=== PATIENT | female | born 1965 | race Caucasian/White ===

== ENCOUNTER → 2017-06-22 | Outpatient (CLI) | payer OTHER ==
[~2017-06-22] MED LIST: FLUO10CA29 PO; GABA-488 PO; GLIM2TAB PO; LIRA0.6P SQ; LISI1TAB6 PO; METF1000 PO; PANT40TA2 PO; PIOG30TA38 PO; SIMV40TA4 PO; SITA1TBM7 PO; TRAM-42 PO
--- NOTE | 2017-06-22 17:31 | Diagnostic Imaging Report ---
INDICATION: Lump in right side of neck. EXAM: Ultrasound of the right side of the neck performed in the area of clinical question. FINDINGS: In the subcutaneous tissues in the right side of the neck posteriorly, there is a 1.4 x 1.5 x 0.8 cm structure with central fatty hilus, compatible lymph node. IMPRESSION: Mildly enlarged lymph node in the posterior subcutaneous fat in the right side of the neck, suggest clinical followup with followup sonography, if warranted. Dictated by: Dictated on workstation # [id number]
== END ==
LOC: RAD 16:18
PROVIDERS: ATTEND Nurse Practitioner Family
DX: R59.0 Localized enlarged lymph nodes (principal)
CPT/HCPCS: 76536

== ENCOUNTER → 2017-07-05 | Outpatient (CLI) | payer OTHER ==
--- NOTE | 2017-07-05 11:33 | Diagnostic Imaging Report ---
INDICATION: Right-sided neck pain for six weeks. TIME OF EXAM: 11:36 a.m. FINDINGS: Curvature and alignment of the cervical spine is normal. There are postop changes of ACDF with anterior plate and screws transfixing the C5-C6 level. The hardware appears intact without evidence of fracture or loosening. The prevertebral tissues are unremarkable. The odontoid is intact. Disc spaces are fairly well maintained. IMPRESSION: Postop changes of C5-C6 ACDF. No acute abnormality is detected. Dictated by: Dictated on workstation # [id number]
== END ==
LOC: RAD 11:04
PROVIDERS: ATTEND Family Medicine
DX: M54.2 Cervicalgia (principal); Z98.890 Other specified postprocedural states
CPT/HCPCS: 72040

== ENCOUNTER → 2017-07-30 | Outpatient (CLI) | payer OTHER ==
[~2017-07-30] VITALS: Ht 167.6 cm; Wt 107.0 kg
[~2017-07-30] MED LIST changes: +LIDOCAINE 1% INJ 20 ML (XYLOCAINE) VIAL INJ ONE; +LIDOCAINE 1% INJ 50 ML (XYLOCAINE) VIAL ONE
[2017-07-30 13:48] VITALS: BP 134/80
--- NOTE | 2017-07-30 18:12 | Diagnostic Imaging Report ---
INDICATION: Enlarged right posterior neck lymph node. Patient presents for biopsy. COMPARISON: Correlation is made with prior study from 06/22/2017. FINDINGS: Sonographic interrogation of the right posterior neck was performed. There is a lymph node at this location just below the skin surface measuring 14 mm x 6 mm x 15 mm. This is stable when compared with prior exam and at the upper limits of normal in size. There is an echogenic center consistent with fat. Overlying cortex is thin at approximately 1 mm. No definite concerning features are identified. After discussion with the patient that the lymph node is stable and not enlarged and no concerning features are visualized, it was decided to not undergo tissue sampling at this time. Patient was agreeable. Recommendation was made to undergo a followup right posterior neck ultrasound in approximately 3 months to confirm stability. IMPRESSION: Stable right neck lymph node, described above. Biopsy was canceled at this time. Patient should repeat ultrasound in 3 months to confirm stability. Dictated by: Dictated on workstation # [id number]
== END ==
LOC: RAD 13:33
PROVIDERS: ATTEND Family Medicine
DX: R59.0 Localized enlarged lymph nodes (principal)
CPT/HCPCS: 76536

== ENCOUNTER → 2017-09-10 | Outpatient (CLI) | payer OTHER ==
[~2017-09-10] MED LIST changes: +GADOBUTROL 15 MMOL/15 ML (GADAVIST) VIAL IV ONE; -LIDOCAINE 1% INJ 20 ML (XYLOCAINE) VIAL INJ ONE; -LIDOCAINE 1% INJ 50 ML (XYLOCAINE) VIAL ONE
[2017-09-10 11:24] LABS: BUN/CREATININE RATIO 13; CREATININE SERUM 0.78 MG/DL (0.60-1.30); GFR ESTIMATED > 60
--- NOTE | 2017-09-10 12:52 | Diagnostic Imaging Report ---
PROCEDURE: MR imaging cervical spine with and without contrast. TECHNIQUE: Multiplanar and multisequence MRI of the cervical spine was performed with and without contrast. INDICATION: Right neck pain and paresthesia. FINDINGS: There is straightening of normal cervical lordosis. Discectomy and anterior cervical spinal fusion is seen at the C5-C6 level. There is slight annular bulging of the adjacent C4-C5 and C6-C7 disc. No significant spinal stenosis is identified. Cervical spinal cord signal intensities are unremarkable. There is no abnormal contrast enhancement. IMPRESSION: Mild degenerative disc bulging at the C4-C5 and C6-C7 levels adjacent to the fused C5-C6 vertebrae. There is no evidence of spinal or significant neural foraminal stenosis. There is no evidence of complication or spinal cord injury. Dictated by: Dictated on workstation # [id number]
--- NOTE | 2017-09-10 16:30 | Diagnostic Imaging Report ---
PROCEDURE: MR angiography of the brain without the use of contrast. TECHNIQUE: 3D evse-ov-aeukxu non contrast enhanced MR angiography of the head was performed. A source data was reformatted into rotating MIP projections. INDICATION: Headache. COMPARISON: None. FINDINGS: Both internal carotid arteries are normal in course and caliber. The anterior and middle cerebral arteries demonstrate normal flow related enhancement and are symmetric. There is no significant stenosis or large aneurysm. The anterior communicating artery is not well seen. However, no large aneurysm is seen. In the posterior circulation, the vertebral arteries appear to be codominant. The vertebral and basilar arteries are unremarkable. The posterior communicating arteries are faintly seen, bilaterally. Both posterior cerebral arteries are unremarkable. There is no evidence of aneurysm, significant stenosis or vascular malformation seen. IMPRESSION: Negative MRA of the [place]. No evidence of significant stenosis or aneurysm. Dictated by: Dictated on workstation # [id number]
== END ==
LOC: RAD 10:49
PROVIDERS: ATTEND Nurse Practitioner Family
DX: M50.221 Other cervical disc displacement at C4-C5 level (principal); R51 Headache
CPT/HCPCS: 36415; 70544; 72156; 82565; 84520

== ENCOUNTER → 2018-03-21 | Outpatient (CLI) | payer OTHER ==
[~2018-03-21] MED LIST changes: -GADOBUTROL 15 MMOL/15 ML (GADAVIST) VIAL IV ONE; +METF-399 PO; -METF1000 PO
--- NOTE | 2018-03-21 16:46 | Diagnostic Imaging Report ---
CLINICAL INDICATION: Patient complains of right wrist pain on lateral side that radiates to mid forearm. No known injury. EXAM: X-ray of the right wrist, three views. COMPARISON: None. FINDINGS: There is roughly 2 mm of positive ulnar variance and slight widening of the distal radioulnar joint at 4 mm. Otherwise, there is no gross acute fracture or dislocation. There is a chronic calcification seen distal to the ulnar styloid process region, which may be from remote traumatic changes. The remainder of this exam shows no other significant abnormality. IMPRESSION: 1: There is positive ulnar variance and slight widening of the distal radioulnar joint. Correlation for recent trauma or ligamentous injury is suggested. 2: Otherwise, there is no concern for acute fracture or dislocation. 3: Likely chronic calcifications from remote traumatic process seen distal to the ulnar styloid process. Dictated by: Dictated on workstation # [id number]
== END ==
LOC: RAD 16:06
PROVIDERS: ATTEND Nurse Practitioner Family
DX: M25.531 Pain in right wrist (principal)
CPT/HCPCS: 73110

== ENCOUNTER → 2019-06-26 | Outpatient (CLI) | payer OTHER ==
[~2019-06-26] MED LIST changes: -GLIM2TAB PO; +GLIM2TAB2 PO; +LISI1TAB29 PO; -LISI1TAB6 PO; +SIMV40TA25 PO; -SIMV40TA4 PO
--- NOTE | 2019-06-26 14:40 | Diagnostic Imaging Report ---
INDICATION: Abdominal pain. FINDINGS: An AP view of the pelvis shows no fracture, dislocation, or other acute abnormalities. IMPRESSION: Negative pelvis. Dictated by: Dictated on workstation # [id number]
--- NOTE | 2019-06-26 14:46 | Diagnostic Imaging Report ---
INDICATION: Abdominal pain and diarrhea. TECHNIQUE: Supine and upright abdominal images were obtained. FINDINGS: The lung bases are clear. The gallbladder appears to be surgically absent. The bowel gas pattern is normal. There are no pathologic masses or calcifications. IMPRESSION: No acute abnormalities in the abdomen. Dictated by: Dictated on workstation # [id number]
== END ==
LOC: RAD 14:07
PROVIDERS: ATTEND Nurse Practitioner Family
DX: R19.7 Diarrhea, unspecified (principal); R10.9 Unspecified abdominal pain
CPT/HCPCS: 72170; 74019

== ENCOUNTER → 2020-02-07 | Outpatient (CLI) | payer OTHER ==
[~2020-02-07] MED LIST changes: -GLIM2TAB2 PO; +GLIM2TAB4 PO
--- NOTE | 2020-02-07 14:26 | Diagnostic Imaging Report ---
INDICATION: Left knee pain posterior to the patella. EXAMINATION: Left knee, 3 views. FINDINGS: Nonweightbearing images show good preservation of the joint spaces. The articulating surfaces are smooth. The joint spaces are well-maintained. The patellofemoral joint appears normal. No fractures. No chondrocalcinosis or loose bodies. No hypertrophic bony changes. IMPRESSION: Normal left knee. Dictated by: Dictated on workstation # [id number]
--- NOTE | 2020-02-07 15:14 | Diagnostic Imaging Report ---
INDICATION: Left leg pain. Left leg venous Doppler study was performed in the routine fashion with color flow Doppler and waveform analysis. FINDINGS: The left common femoral vein, superficial femoral vein, popliteal vein and visualized portion of the posterior tibial vein show normal compressibility and venous flow patterns. There is normal augmentation. IMPRESSION: No evidence of deep vein thrombosis of the major veins of the left leg. Dictated by: Dictated on workstation # [id number]
== END ==
LOC: RAD 13:44
PROVIDERS: ATTEND Nurse Practitioner Family
DX: M25.562 Pain in left knee (principal); M79.605 Pain in left leg
CPT/HCPCS: 73562

== ENCOUNTER 2021-03-21 05:43 | Outpatient (RCR) | payer OTHER ==
[~2021-03-21] VITALS: Ht 167.6 cm; Wt 85.5 kg
[~2021-03-21 05:43] MED LIST changes: -LISI1TAB29 PO; +LISI1TAB44 PO
[2021-04-22] MEDS ORDERED: ESTR42.511 VG (14:48)
[2021-04-22] MEDS ORDERED: GABA300S2 PO (14:48)
[2021-04-22] MEDS ORDERED: LISI2.5T13 PO (14:50)
[2021-04-22] MEDS ORDERED: INSU3INS2 SQ (14:50)
[2021-04-29] MEDS ORDERED: FAMO-119 PO ×2 (10:29→11:07)
== END 2021-06-06 | disposition home or self-care (01) ==
LOC: PREOP 05:43
PROVIDERS: ATTEND Surgery
DX: Z01.818 Encounter for other preprocedural examination (principal)

== ENCOUNTER → 2021-04-10 | Outpatient (CLI) | payer OTHER ==
[~2021-04-10] MED LIST changes: +LISI1TAB29 PO; -LISI1TAB44 PO
== END ==
LOC: ORTHO 10:26
PROVIDERS: ATTEND Orthopaedic Surgery
DX: M65.321 Trigger finger, right index finger (principal)
CPT/HCPCS: 20550

== ENCOUNTER 2021-04-25 05:33 | Outpatient (RCR) | payer OTHER ==
[~2021-04-25] VITALS: Ht 167.6 cm; Wt 85.5 kg
[~2021-04-25 05:33] MED LIST changes: +ESTR42.511 VG; +GABA300S2 PO; +INSU3INS2 SQ; +LISI2.5T13 PO
[2021-04-29] MEDS ORDERED: FAMO-119 PO ×2 (10:29→11:07)
== END 2021-04-25 13:47 | disposition home or self-care (01) ==
LOC: PREOP 05:33
PROVIDERS: ATTEND Surgery
DX: Z01.812 Encounter for preprocedural laboratory examination (principal); K21.9 Gastro-esophageal reflux disease without esophagitis; Z20.822 Contact with and (suspected) exposure to COVID-19; Z86.010 Personal history of colon polyps
CPT/HCPCS: 87635

== ENCOUNTER 2021-04-29 08:18 | Day surgery (SDC) | payer OTHER ==
[2021-04-29] VITALS (7 sets, daily range): BP systolic 125–144; BP diastolic 71–91
[~2021-04-29] VITALS: Ht 167.6 cm; Wt 85.5 kg
[~2021-04-29 08:18] MED LIST changes: -LISI1TAB29 PO; +LISI1TAB44 PO
[2021-04-29] MEDS ORDERED: LACTATED RINGERS 1,000 ML IV STA (08:34)
[2021-04-29] MEDS ORDERED: LACTATED RINGERS 1,000 ML IV ONE (08:36)
[2021-04-29] MEDS ORDERED: HURRICAINE EXT TUBE (BENZOCAINE) XX PRN (08:45)
[2021-04-29] MEDS ORDERED: MIDAZOLAM 2 MG/2 ML (VERSED) VIAL ONE (09:01)
[2021-04-29] MEDS ORDERED: PROPOFOL INJECTION 50 ML IV ONE (09:01)
[2021-04-29] MEDS ORDERED: proPOfol 200 MG/20 ML (DIPRIVAN) VIAL IV ONE (10:14)
--- NOTE | 2021-04-29 10:27 | Progress Note-Post Operative ---
Post-Operative Progess Note Surgeon (s)/Grease Press Helper (s) Surgeon PEPITO GONZALES DO Grease Press Helper: na Pre-Operative Diagnosis 1.GERD 2. Personal history of polyps Post-Operative Diagnosis slight gastritis, rectal polyps x 2 Procedure & Operative Findings Date of Procedure 04/29/21 Procedure Performed/Findings egd c biopsies, colonoscopy c hot bx polypectomy x 2. Anesthesia Type per medicine assistant Estimated Blood Loss Estimated blood loss (mL): none Specimens/Packing Specimens Removed antrum, ge, rectal polyps PEPITO GONZALES DO Apr 29, 2021 10:27
--- NOTE | 2021-04-29 10:28 | Discharge Inst-Simple/Standard ---
Discharge Inst-Standard Patient Instructions/Follow Up Plan of Care/Instructions/FU: 2 weeks ivet Activity as Tolerated: Yes Discharge Diet: Regular Diet PEPITO GONZALES DO Apr 29, 2021 10:28
[2021-04-29] MEDS ORDERED: FAMO-119 PO ×2 (10:29→11:07)
--- NOTE | 2021-04-29 13:55 | Anesthesia-General Post-Op ---
MAC Patient Condition Mental Status/LOC: Same as Preop Cardiovascular: Satisfactory Nausea/Vomiting: Absent Respiratory: Satisfactory Pain: Controlled Complications: Absent Post Op Complications Complications None Follow Up Care/Instructions Patient Instructions None needed. Anesthesiology Discharge Order Discharge Order Patient is doing well, no complaints, stable vital signs, no apparent adverse anesthesia problems. No complications reported per nursing. CLARE THOMPSON CRNA Apr 29, 2021 13:55
--- NOTE | 2021-04-29 16:46 | OPERATIVE REPORT ---
DATE OF SERVICE: PREOPERATIVE DIAGNOSES: Gastroesophageal reflux disease and history of polyps. POSTOPERATIVE DIAGNOSES: Slight gastritis, rectal polyp x2. PROCEDURE: EGD with biopsies, colonoscopy with hot biopsy polypectomy x2. SURGEON: Pepito Carrasco DO ANESTHESIA: Per HOLISTIC SPECIALIST. ESTIMATED BLOOD LOSS: None. COMPLICATIONS: None. SPECIMENS: Antrum, GE junction and rectal polyps. DESCRIPTION OF PROCEDURE: The patient was taken to the endoscopy suite, placed in left lateral recumbent position. Timeout was performed. Scope was inserted in mouth, down the esophagus, stomach and into the duodenum without difficulty. There were no polyps, masses or ulcerations. Scope was slowly retracted back into the stomach where it was further insufflated. Slight erythematous changes. Biopsy of the antrum was obtained. No masses or ulcerations. Scope was retroflexed noting no other pathology. Scope was returned to its normal position, slowly withdrawn to distal esophagus. No polyps, masses or ulcerations. Biopsy of the GE junction was obtained. Scope was slowly retracted back until completely removed. Digital rectal exam was performed. No palpable polyps, masses or ulcerations. Scope was inserted in the rectum, advanced all the way to cecum with minimal difficulty. Prep was adequate with irrigation and suction. Scope was slowly retracted back. No polyps, masses or ulcerations within the cecum, ascending, transverse, descending and sigmoid colon. Once in the rectum, two small polyps were present, which hot biopsy polypectomies were performed. Scope was retroflexed noting no other pathology. Scope was returned to its normal position, slowly withdrawn until completely removed. The patient tolerated procedure well without any complications. She was taken to recovery room in stable condition. RECOMMENDATIONS: 1. The patient will start Pepcid 20 mg daily. We will see how her symptoms are doing in the office in a couple of weeks. The patient will have repeat colonoscopy in 5 years. Any issues before that will be seen at that time. We will follow up on pathology in the office. Job ID: [id number] DocumentID: [id number] Dictated Date: 04/29/2021 10:31:52 Pin Chaser Date: 04/29/2021 16:45:54 Dictated By: PEPITO CARRASCO DO
== END 2021-04-29 12:13 ==
LOC: ENDO 08:18
PROVIDERS: ATTEND Surgery
DX: Z12.11 Encounter for screening for malignant neoplasm of colon (principal); K62.1 Rectal polyp; K21.00 Gastro-esophageal reflux disease with esophagitis, without bleeding; D72.19 Other eosinophilia; I10 Essential (primary) hypertension; E11.9 Type 2 diabetes mellitus without complications; K44.9 Diaphragmatic hernia without obstruction or gangrene; Z79.899 Other long term (current) drug therapy; Z79.84 Long term (current) use of oral hypoglycemic drugs; Z90.49 Acquired absence of other specified parts of digestive tract
CPT/HCPCS: 82947

== ENCOUNTER → 2022-01-20 | Outpatient (CLI) | payer OTHER ==
[~2022-01-20] MED LIST changes: +FAMO-119 PO; +FAMO-275 PO; +GABA300C PO; +TRAM50TA3 PO
== END ==
LOC: ORTHO 17:14
PROVIDERS: ATTEND Orthopaedic Surgery
DX: M65.321 Trigger finger, right index finger (principal); E11.9 Type 2 diabetes mellitus without complications; I10 Essential (primary) hypertension
CPT/HCPCS: 99213

== ENCOUNTER 2022-01-21 09:30 | Outpatient (CLI) | payer OTHER ==
[~2022-01-21] VITALS: Ht 167.6 cm; Wt 95.2 kg
[~2022-01-21 09:30] MED LIST changes: -FAMO-275 PO; -GABA300C PO; -TRAM50TA3 PO
[2022-01-21] MEDS ORDERED: GABA300C PO ×2 (10:55)
[2022-01-21] MEDS ORDERED: FAMO-275 PO ×2 (10:55)
[2022-01-21] MEDS ORDERED: LISI1TAB44 PO ×2 (10:55)
== END 2022-01-21 11:03 | disposition home or self-care (01) ==
LOC: PREOP 09:30
PROVIDERS: ATTEND Orthopaedic Surgery
DX: Z01.818 Encounter for other preprocedural examination (principal); M65.321 Trigger finger, right index finger

== ENCOUNTER 2022-01-23 09:48 | Day surgery (SDC) | payer OTHER ==
[~2022-01-23] VITALS: Ht 167.6 cm; Wt 95.2 kg
[2022-01-23] VITALS (9 sets, daily range): BP systolic 120–150; BP diastolic 83–90
[~2022-01-23 09:48] MED LIST changes: +FAMO-275 PO; +GABA300C PO
[2022-01-23] MEDS ORDERED: MIDAZOLAM 2 MG/2 ML (VERSED) VIAL ONE (10:41)
[2022-01-23] MEDS ORDERED: ONDANSETRON 4 MG/2 ML (SDV) Z0FRAN ONE (10:41)
[2022-01-23] MEDS ORDERED: PROPOFOL INJECTION 50 ML IV ONE ×2 (10:41→11:38)
[2022-01-23] MEDS ORDERED: fentaNYL INJ 100 MCG/2 ML AMP ONE (10:41)
[2022-01-23] MEDS ORDERED: ceFAZolin 2 GM IV Premixed 50 ML IV ONE (10:45)
[2022-01-23] MEDS ORDERED: LACTATED RINGERS 1,000 ML IV PRN (10:45)
[2022-01-23] MEDS ORDERED: BUPIVACAINE 0.25% 30 ML (SENSORCAINE) VIAL ONE (10:51)
[2022-01-23] MEDS ORDERED: LIDOCAINE 1% INJ 20 ML VIAL ONE (10:51)
[2022-01-23] MEDS ORDERED: BACITRACIN OINTMENT 28 GM TUBE ONE (10:51)
--- NOTE | 2022-01-23 11:03 | Progress Note-Pre Operative ---
Pre-Operative Progress Note Date of Available H&P: Jan 20, 2022 Date H&P Reviewed: Jan 23, 2022 Time H&P Reviewed: 11:00 History & Physical: H&P Reviewed, Patient Examed, No changes noted Pre-Operative Diagnosis: Right Index Trigger Finger CLARE PHOENIX MD Jan 23, 2022 11:03
--- NOTE | 2022-01-23 11:55 | Operative Report - Ortho ---
Operative Report Surgeon (s)/Service Administrator (s) Surgeon CLARE PHOENIX MD Service Administrator n/a Pre-Operative Diagnosis Right Index Trigger Finger Post-Operative Diagnosis same Operative Report Date of Procedure: Jan 23, 2022 Name of Procedure Performed: Release of Right Index Trigger Finger Description & Findings After obtaining informed consent and marking the patient in the preop holding area, patient was administered IV antibiotics. Taken to the operating room and sedation was administered. Surgical timeout was taken. Local anesthetic was administered. Right upper extremity was prepped and draped in the usual sterile fashion. Incision was made over the A1 oscar of the right index finger. Blunt dissection was carried down and the proximal aspect of the oscar was defined and the oscar was released proximally to distally. Finger was put through motion without evidence of triggering. Wound was lavaged with normal saline and closed with 4-0 nylon. Site was dressed with xeroform, 4x4's, zehra, cast padding, and neil wrap. Patient tolerated the procedure well and was stable to the recovery room. Anesthesia Type Local and MAC Estimated Blood Loss minimal Specimen(s) collected/removed None CLARE PHOENIX MD Jan 23, 2022 11:55
[2022-01-23] MEDS ORDERED: TRAM50TA3 PO ×2 (11:57)
--- NOTE | 2022-01-23 11:57 | Anesthesia-General Post-Op ---
MAC Patient Condition Mental Status/LOC: Same as Preop Cardiovascular: Satisfactory Nausea/Vomiting: Absent Respiratory: Satisfactory Pain: Controlled Complications: Absent Post Op Complications Complications None Follow Up Care/Instructions Patient Instructions None needed. Anesthesiology Discharge Order Discharge Order Patient is doing well, no complaints, stable vital signs, no apparent adverse anesthesia problems. No complications reported per nursing. ALEXANDRIA PHILLIPS CRNA Jan 23, 2022 11:57
[2022-01-23] MEDS ORDERED: ONDANSETRON 4 MG/2 ML (SDV) Z0FRAN IVP PRN (12:00)
[2022-01-23] MEDS ORDERED: PROMETHAZINE INJ 25 MG/ML (PHENERGAN) AMP IVP ONE (12:00)
[2022-01-23] MEDS ORDERED: HYDROmorphone 2 MG/ML VIAL (DILAUDID) IV ONE (12:00)
[2022-01-23] MEDS ORDERED: morphine INJ 10 MG/ML 1ML (SYR OR VIAL) IVP ONE (12:00)
[2022-01-23] MEDS ORDERED: fentaNYL INJ 100 MCG/2 ML AMP IVP ONE (12:00)
[2022-01-23] MEDS ORDERED: MEPERIDINE (DEMEROL) INJ 50 MG/ML IVP ONE (12:00)
== END 2022-01-23 13:20 | disposition home or self-care (01) ==
LOC: SDC 09:48
PROVIDERS: ATTEND Orthopaedic Surgery
DX: M65.321 Trigger finger, right index finger (principal); E66.9 Obesity, unspecified; Z68.34 Body mass index [BMI] 34.0-34.9, adult
CPT/HCPCS: 82947; 87081

== ENCOUNTER → 2022-02-05 | Outpatient (CLI) | payer OTHER ==
[~2022-02-05] MED LIST changes: +TRAM50TA3 PO
== END ==
LOC: ORTHO 08:21
PROVIDERS: ATTEND Orthopaedic Surgery
DX: Z47.89 Encounter for other orthopedic aftercare (principal); E11.9 Type 2 diabetes mellitus without complications; I10 Essential (primary) hypertension; Z98.890 Other specified postprocedural states

== ENCOUNTER → 2022-03-24 | Outpatient (CLI) | payer OTHER | LOC: ORTHO 08:45 | PROVIDERS: ATTEND Orthopaedic Surgery | DX: Z47.89 Encounter for other orthopedic aftercare (principal) ==

== ENCOUNTER → 2022-04-21 | Outpatient (CLI) | payer OTHER | LOC: ORTHO 08:54 | PROVIDERS: ATTEND Orthopaedic Surgery | DX: Z47.89 Encounter for other orthopedic aftercare (principal) ==

== ENCOUNTER → 2022-09-01 | Outpatient (CLI) | payer OTHER | LOC: ORTHO 10:46 | PROVIDERS: ATTEND Orthopaedic Surgery | DX: M65.331 Trigger finger, right middle finger (principal); I10 Essential (primary) hypertension; E11.9 Type 2 diabetes mellitus without complications | CPT/HCPCS: 20551 ==

== ENCOUNTER 2022-12-06 20:21 | Emergency (ER) | payer OTHER ==
[~2022-12-06] VITALS: Ht 167.7 cm; Wt 83.9 kg
[~2022-12-06 20:21] MED LIST changes: -GABA300S2 PO; +GABA300S3 PO
[2022-12-06 20:30] VITALS: BP 142/96
--- NOTE | 2022-12-06 20:46 | ED General ---
General Stated Complaint: CHEST PAIN WHEN TRYING TO EAT OR DRINK Source of Information: Patient Exam Limitations: No Limitations (BLAYNE SANDOVAL) History of Present Illness Date Seen by Provider: Dec 06, 2022 Time Seen by Provider: 20:44 Initial Comments Patient is a 57-year-old female presents ED with substernal chest pain. Chest pain started last Wednesday. Chest pain occurs with swallowing. She was seen at Dr. SLOAN's office by her nurse practitioner was discharged with Carafate, Protonix and Gaviscon which she has been using. This pain has progressively got worse. This pain only occurs with eating and located center chest. Pain last for 3 to 4 minutes. Decreased appetite. She has only been able to eat 3-4 bites of sherbet today. Does not matter what she eats the pain intensifies. She has a history of 2 bowel obstructions, total hysterectomy, cholecystectomy. She has no abdominal pain with this. Pain does radiate to the back every time she eats. She denies history of coronary artery disease, COPD or asthma. She denies any recent travels or surgeries. No known blood disorders. Denies history of esophagitis, gastritis, peptic ulcer disease. Denies history of similar type pain. Patient denies abdominal pain, leg pain, leg swelling, fever, chills, body aches (BLAYNE SANDOVAL) Allergies and Home Medications Allergies Coded Allergies: codeine (Unverified Adverse Reaction, Intermediate, VOMITING, 09/13/15) PER PT Patient Home Medication List Home Medication List Reviewed: Yes (BLAYNE SANDOVAL) Estradiol (Estradiol) 42.5 Gm Cream.appl, 0.1 MG VG UD, (Reported) Entered as Reported by: BELIA ROWLEY on 04/22/21 1448 Famotidine (Zantac-360 (Famotidine)) 20 Mg Tablet, 20 MG PO DAILY, (Reported) Entered as Reported by: SARA FAIRCHILD on 01/21/22 1055 Fluoxetine HCl (Prozac) 10 Mg Capsule, 10 MG PO DAILY, (Reported) Entered as Reported by: JAMES SMITH on 09/04/15 1105 Gabapentin (Neurontin) 300 Mg Capsule, 300 MG PO HS, (Reported) Entered as Reported by: SARA FAIRCHILD on 01/21/22 1055 Insulin Glargine/Lixisenatide (Soliqua 100 Unit-33 Mcg/ml Pen) 100 Unit-33 Mcg/Ml (3 Ml) Insuln.pen, 35 UNIT SQ DAILY, (Reported) Entered as Reported by: BELIA ROWLEY on 04/22/21 1450 Lisinopril/Hydrochlorothiazide (Lisinopril-Hctz 10-12.5 mg Tab) 10 Mg-12.5 Mg Tablet, 1 EACH PO DAILY, (Reported) Entered as Reported by: SARA FAIRCHILD on 01/21/22 1055 Metformin HCl (Metformin HCl) 1,000 Mg Tablet, 1,000 MG PO BID, (Reported) Entered as Reported by: JAMES SMITH on 09/04/15 1105 Simvastatin (Simvastatin) 40 Mg Tablet, 40 MG PO DAILY, (Reported) Entered as Reported by: JAMES SMITH on 09/04/15 1105 Tramadol HCl (Tramadol HCl) 50 Mg Tablet, 50 MG PO Q6H Prescribed by: CLARE PHOENIX MD on 01/23/22 1158 Review of Systems Review of Systems Constitutional: No chills, No diaphoresis, No malaise EENTM: No ear pain, No blurred vision, No double vision Respiratory: No cough, No dyspnea on exertion Cardiovascular: chest pain Gastrointestinal: No abdominal pain, No constipation, No diarrhea, No nausea, No vomiting Genitourinary: No decreased output, No discharge Musculoskeletal: No back pain, No joint pain (BLAYNE SANDOVAL) All Other Systems Reviewed Negative Unless Noted: Yes (BLAYNE SANDOVAL) Past Lhawuuq-Dkwdpv-Vwyesa Hx Immunizations Up To Date First/Initial COVID19 Vaccinat: 06/27 Second COVID19 Vaccination [place]: 08/25 Third COVID19 Vaccination Date: 04 27 (BLAYNE SANDOVAL) Seasonal Allergies Seasonal Allergies: No (BLAYNE SANDOVAL) Past Medical History Surgeries: Yes (NECK FUSION, TUBAL X2, FOOT SURGERY X2, bowel obstruction x2) Gallbladder, Hysterectomy Respiratory: No Currently Using CPAP: No Currently Using BIPAP: No Cardiac: Yes High Cholesterol, Hypertension Neurological: No 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 Sexually Transmitted Disease: No HIV/AIDS: No Genitourinary: No Gastrointestinal: Yes (TAKES TUMS AT TIMES) Gastroesophageal Reflux, Polyps, Hiatal Hernia Musculoskeletal: Yes (HX NECK FUSION) Endocrine: Yes Diabetes, Insulin dep HEENT: No Loss of Vision: Bilateral Hearing Impairment: Denies Cancer: No Psychosocial: No Depression Integumentary: No Blood Disorders: No Adverse Reaction/Blood Tranf: No (BLAYNE SANDOVAL) Physical Exam Vital Signs Vital Signs - First Documented 12/06/22 20:30 Temp 36.9 Pulse 85 Resp 17 B/P (MAP) 142/96 (111) O2 Delivery Room Air (MORGAN MISTRY MD) Vital Signs Capillary Refill : (BLAYNE SANDOVAL) Height, Weight, BMI Height: 5'6.00" Weight: 236lbs. 0.0oz. 107.947121ui; 33.89 BMI Method: General Appearance: No Apparent Distress, WD/WN Eyes: Bilateral Eye Normal Inspection, Bilateral Eye PERRL, Bilateral Eye EOMI HEENT: PERRL/EOMI, TMs Normal, Normal ENT Inspection, Pharynx Normal Neck: Full Range of Motion, Normal Inspection, Non Tender, Supple Respiratory: Chest Non Tender, Lungs Clear, Normal Breath Sounds, No Accessory Muscle Use, No Respiratory Distress Cardiovascular: Regular Rate, Rhythm, No Edema, No Gallop, No JVD, No Murmur Gastrointestinal: Normal Bowel Sounds, No Organomegaly, No Pulsatile Mass, Non Tender Back: Normal Inspection, No CVA Tenderness Extremity: Normal Capillary Refill, Normal Inspection, Normal Range of Motion, Non Tender, No Calf Tenderness Neurologic/Psychiatric: Alert, Oriented x3, No Motor/Sensory Deficits, Normal Mood/Affect, 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 Norm as Tested Skin: Normal Color, Warm/Dry (BLAYNE SANDOVAL) Progress/Results/Core Measures Suspected Sepsis SIRS Temperature: Pulse: Respiratory Rate: Laboratory Tests 12/06/22 20:46: White Blood Count 7.0 Blood Pressure / Mean: Laboratory Tests 12/06/22 20:46: Creatinine 0.70, Platelet Count 281, Total Bilirubin 0.5 (BLAYNE SANDOVAL) Results/Orders Lab Results Laboratory Tests Test 12/06/22 20:46 Range/Units White Blood Count 7.0 4.3-11.0 10^3/uL Red Blood Count 5.14 H 3.80-5.11 10^6/uL Hemoglobin 14.2 11.5-16.0 g/dL Hematocrit 42 35-52 % Mean Corpuscular Volume 83 80-99 fL Mean Corpuscular Hemoglobin 28 25-34 pg Mean Corpuscular Hemoglobin Concent 34 32-36 g/dL Red Cell Distribution Width 12.4 10.0-14.5 % Platelet Count 281 130-400 10^3/uL Mean Platelet Volume 9.3 9.0-12.2 fL Immature Granulocyte % (Auto) 0 % Neutrophils (%) (Auto) 55 42-75 % Lymphocytes (%) (Auto) 35 12-44 % Monocytes (%) (Auto) 9 0-12 % Eosinophils (%) (Auto) 1 0-10 % Basophils (%) (Auto) 0 0-10 % Neutrophils # (Auto) 3.9 1.8-7.8 10^3/uL Lymphocytes # (Auto) 2.5 1.0-4.0 10^3/uL Monocytes # (Auto) 0.6 0.0-1.0 10^3/uL Eosinophils # (Auto) 0.1 0.0-0.3 10^3/uL Basophils # (Auto) 0.0 0.0-0.1 10^3/uL Immature Granulocyte # (Auto) 0.0 0.0-0.1 10^3/uL Sodium Level 137 135-145 MMOL/L Potassium Level 3.6 3.6-5.0 MMOL/L Chloride Level 100 98-107 MMOL/L Carbon Dioxide Level 25 21-32 MMOL/L Anion Gap 12 5-14 MMOL/L Blood Urea Nitrogen 10 7-18 MG/DL Creatinine 0.70 0.60-1.30 MG/DL Estimat Glomerular Filtration Rate 101 BUN/Creatinine Ratio 14 Glucose Level 124 H 70-105 MG/DL Calcium Level 9.2 8.5-10.1 MG/DL Corrected Calcium 9.3 8.5-10.1 MG/DL Total Bilirubin 0.5 0.1-1.0 MG/DL Aspartate Amino Transf (AST/SGOT) 16 5-34 U/L Alanine Aminotransferase (ALT/SGPT) 15 0-55 U/L Alkaline Phosphatase 83 40-136 U/L Troponin I < 0.028 <0.028 NG/ML Total Protein 7.3 6.4-8.2 GM/DL Albumin 3.9 3.2-4.5 GM/DL Lipase 48 8-78 U/L (MORGAN MISTRY MD) Medications Given in ED Current Medications Medications Dose Ordered Sig/Singh Route Start Time Stop Time Status Last Admin Dose Admin Al Hydrox/Mg Hydrox/Simethicone 30 ml ONCE ONCE PO 12/06/22 21:45 12/06/22 21:46 DC 12/06/22 22:06 30 ML Iohexol 100 ml ONCE ONCE IV 12/06/22 21:15 12/06/22 21:16 DC 12/06/22 21:44 75 ML Lidocaine HCl 15 ml ONCE ONCE PO 12/06/22 21:45 12/06/22 21:46 DC 12/06/22 22:06 15 ML Sodium Chloride 100 ml ONCE ONCE IV 12/06/22 21:15 12/06/22 21:16 DC 12/06/22 21:44 80 ML (MORGAN MISTRY MD) Vital Signs/I&O 12/06/22 20:30 Temp 36.9 Pulse 85 Resp 17 B/P (MAP) 142/96 (111) O2 Delivery Room Air (MORGAN MISTRY MD) Vital Signs/I&O Capillary Refill : (BLAYNE SANDOVAL) ECG Comment Sinus rhythm, 86 bpm, QRS duration 90 MS, QTc 419 MS. (BLAYNE SANDOVAL) Departure Communication (PCP) Patient is a 57-year-old female with a history of cholecystectomy, total hysterectomy, 2 bowel obstructions who presents ED with substernal chest pain immediately after she eats. This last for 3 to 4 minutes. Located substernal chest radiates to the back. On exam she has no chest tenderness. She has no epigastric right upper quadrant tenderness. Patient states symptoms started on Wednesday. This has progressively gotten worse. She ate 3-4 bites of sherbet today and states the pain has intensified. Saw her primary care physician last Wednesday and prescribed Gaviscon, Protonix and Carafate. Patient vital signs stable. Due to location of pain CBC, CMP, troponin, EKG CT scan of the chest. Differential diagnosis esophagitis, esophageal dysfunction. CT scan of the chest showed several subcentimeter short axis superior mediastinal lymph nodes measuring up to 9 mm in short axis of unclear exact etiology. There is no wall thickening of the esophagus or stomach. Recommend further evaluation with upper endoscopy. Patient did receive a GI cocktail which did improve this sharp pain. She was able to tolerate p.o. water. Patient was discussed with Dr. Gonzales. Discussed results, imaging, presentation. Recommended no diet, caffeine, soda. Liquid diet until 12 PM and n.p.o. after midnight. Recommend following up in the office at 9 AM. We will work to get patient a upper EGD tomorrow. Patient agrees with this plan of action. N.p.o. after midnight (BLAYNE SANDOVAL) Impression Primary Impression: Esophagitis Disposition: 01 HOME, SELF-CARE Condition: Stable Departure-Patient Inst. Decision time for Depature: 22:22 (BLAYNE SANDOVAL) Referrals: PEPITO GONZALES JACQUELINE S DO (PCP/Family) Primary Care Physician Patient Instructions: Esophagitis Add. Discharge Instructions: Recommend following up with Dr. Gonzales at 9 AM. N.p.o. after midnight. Clear liquids until midnight. Continue with your medication. ATTENDING PHYSICIAN NOTE: I was physically present as attending physician in the emergency department during the care of this patient, but I was not directly involved in the decision making or delivery of care for this patient. (MORGAN MISTRY MD) BLAYNE SANDOVAL Dec 06, 2022 20:46 MORGAN MISTRY MD Dec 07, 2022 03:43
[2022-12-06 21:02] LABS: BASOPHILS % (AUTO) 0 % (0-10); EOSINOPHILS # (AUTO) 0.1 10^3/uL (0.0-0.3); EOSINOPHILS % (AUTO) 1 % (0-10); HEMATOCRIT 42 % (35-52); HEMOGLOBIN 14.2 g/dL (11.5-16.0); LYMPHOCYTES # (AUTO) 2.5 10^3/uL (1.0-4.0); LYMPHOCYTES % (AUTO) 35 % (12-44); MEAN CORPUSCULAR HEMOGLOBIN 28 pg (25-34); MEAN CORPUSCULAR HGB CONC 34 g/dL (32-36); MEAN CORPUSCULAR VOLUME 83 fL (80-99); MEAN PLATELET VOLUME 9.3 fL (9.0-12.2); MONOCYTES # (AUTO) 0.6 10^3/uL (0.0-1.0); MONOCYTES % (AUTO) 9 % (0-12); NEUTROPHILS # (AUTO) 3.9 10^3/uL (1.8-7.8); NEUTROPHILS % (AUTO) 55 % (42-75); PLATELET COUNT 281 10^3/uL (130-400)
[2022-12-06] MEDS ORDERED: IOHEXOL 350 MG/ML 100 ML (OMNIPAQUE 350) VIAL IV ONE (21:15)
[2022-12-06] MEDS ORDERED: NS 100 ML (IVPB) BAG IV ONE (21:15)
[2022-12-06] MEDS ORDERED: HOLD METFORMIN - RECEIVED CONTRAST 20 ML VIAL IV SCH (21:15)
[2022-12-06 21:31] LABS: ALBUMIN 3.9 GM/DL (3.2-4.5)
[2022-12-06 21:32] LABS: CHLORIDE 100 MMOL/L (98-107); POTASSIUM 3.6 MMOL/L (3.6-5.0); SODIUM 137 MMOL/L (135-145)
[2022-12-06 21:33] LABS: CALCIUM 9.2 MG/DL (8.5-10.1)
[2022-12-06 21:34] LABS: GLUCOSE 124 MG/DL (70-105); TOTAL PROTEIN 7.3 GM/DL (6.4-8.2)
[2022-12-06 21:35] LABS: CARBON DIOXIDE 25 MMOL/L (21-32)
[2022-12-06 21:36] LABS: BILIRUBIN,TOTAL 0.5 MG/DL (0.1-1.0)
[2022-12-06 21:37] LABS: ALKALINE PHOSPHATASE 83 U/L (40-136)
[2022-12-06 21:38] LABS: GFR ESTIMATED 101
[2022-12-06 21:39] LABS: BUN/CREATININE RATIO 14
[2022-12-06 21:40] LABS: ALANINE AMINOTRANSFERASE 15 U/L (0-55)
[2022-12-06 21:41] LABS: LIPASE 48 U/L (8-78)
[2022-12-06] MEDS ORDERED: ANTACID SUSP 30 ML UDC (MYLANTA) PO ONE (21:45)
[2022-12-06] MEDS ORDERED: LIDOCAINE 2% VISCOUS 15 ML UDC PO ONE (21:45)
--- NOTE | 2022-12-06 21:58 | Diagnostic Imaging Report ---
Procedure: CT chest with contrast only. Technique: Multiple contiguous axial images were obtained through the chest after administration of intravenous contrast. Auto Exposure Controls were utilized during the CT exam to meet ALARA standards for radiation dose reduction. Date: December 06, 2022. Indication: 57-year-old female, sternal pain when swallowing. Comparison: None. Findings: There is no identified pulmonary nodule or lung mass. There is no pneumothorax. There is no pleural effusion. There is no focal airspace consolidation. There is very mild dependent atelectasis in the right and left lower lobes. The central airways are patent. The heart is not enlarged. There is no identified pericardial effusion. There is no CT apparent wall thickening of the esophagus. The trachea is normal in caliber. There is no abnormally enlarged mediastinal, hilar or axillary lymph node meeting CT size criteria for adenopathy. The thyroid gland is grossly unremarkable in appearance on CT assessment within its imaged extent. The gallbladder is surgically absent. There are superior mediastinal lymph nodes, such as on axial image 124, which measure up to 9 mm in short axis. There are degenerative changes of the spine. There is no identified acute bony abnormality. Impression: 1. No identified acute cardiopulmonary abnormality. 2. Several subcentimeter short axis superior mediastinal lymph nodes measuring up to 9 mm in short axis of unclear exact etiology. Although there is no CT apparent wall thickening of the esophagus or stomach, considering symptoms and location of adenopathy, further evaluation with upper endoscopy may be of benefit. Dictated by: Dictated on workstation # [id number]
[2022-12-07] MEDS ORDERED: SEMA0.25 SQ (11:12)
[2022-12-07] MEDS ORDERED: MAG-59 PO (11:12)
[2022-12-07] MEDS ORDERED: PANT40TA52 PO ×2 (11:12→12:15)
[2022-12-07] MEDS ORDERED: OMEP-401 PO (11:12)
[2022-12-07] MEDS ORDERED: ASPI-1238 PO (11:12)
[2022-12-07] MEDS ORDERED: SUCR1TAB36 PO (11:12)
[2022-12-07] MEDS ORDERED: FAMO-119 PO (12:15)
== END 2022-12-06 22:31 | disposition home or self-care (01) ==
LOC: EDUNIT# 20:21 → ER 20:24
DX: K21.00 Gastro-esophageal reflux disease with esophagitis, without bleeding (principal); K44.9 Diaphragmatic hernia without obstruction or gangrene; E11.9 Type 2 diabetes mellitus without complications; Z79.4 Long term (current) use of insulin; Z90.49 Acquired absence of other specified parts of digestive tract
CPT/HCPCS: 36415; 71260; 80053; 83690; 84484; 85025; 93005

== ENCOUNTER 2022-12-07 10:17 | Day surgery (SDC) | payer OTHER ==
[~2022-12-07] VITALS: Ht 167.6 cm; Wt 91.6 kg
[2022-12-07] MEDS ORDERED: LACTATED RINGERS 1,000 ML IV STA (10:32)
[2022-12-07] MEDS ORDERED: HURRICAINE EXT TUBE (BENZOCAINE) XX PRN (10:45)
[2022-12-07 10:50] VITALS: BP 128/89
[2022-12-07] MEDS ORDERED: SEMA0.25 SQ (11:12)
[2022-12-07] MEDS ORDERED: SUCR1TAB36 PO (11:12)
[2022-12-07] MEDS ORDERED: ASPI-1238 PO (11:12)
[2022-12-07] MEDS ORDERED: PANT40TA52 PO ×2 (11:12→12:15)
[2022-12-07] MEDS ORDERED: OMEP-401 PO (11:12)
[2022-12-07] MEDS ORDERED: MAG-59 PO (11:12)
--- NOTE | 2022-12-07 11:29 | Progress Note-Pre Operative ---
Pre-Operative Progress Note Date H&P Reviewed: Dec 07, 2022 Time H&P Reviewed: 11:29 History & Physical: H&P Reviewed, Patient Examed, No changes noted Pre-Operative Diagnosis: atypical chest pain, dysphagia PEPITO GONZALES DO Dec 07, 2022 11:29
[2022-12-07] MEDS ORDERED: PROPOFOL INJECTION 50 ML IV ONE (11:31)
[2022-12-07] MEDS ORDERED: MIDAZOLAM 2 MG/2 ML (VERSED) VIAL ONE (11:31)
[2022-12-07 11:45] VITALS: BP 125/89
--- NOTE | 2022-12-07 11:45 | Anesthesia-General Post-Op ---
MAC Patient Condition Mental Status/LOC: Same as Preop Cardiovascular: Satisfactory Nausea/Vomiting: Absent Respiratory: Satisfactory Pain: Controlled Complications: Absent Post Op Complications Complications None Follow Up Care/Instructions Patient Instructions None needed. Anesthesiology Discharge Order Discharge Order Patient is doing well, no complaints, stable vital signs, no apparent adverse anesthesia problems. No complications reported per nursing. ROSALINDA SHARPE CRNA Dec 07, 2022 11:45
[2022-12-07 11:50] VITALS: BP 125/89
[2022-12-07] MEDS ORDERED: FAMO-119 PO (12:15)
--- NOTE | 2022-12-07 12:16 | Discharge Inst-Simple/Standard ---
Discharge Inst-Standard Discharge Medications New, Converted or Re-Newed RX: Transmitted to Pharmacy Patient Instructions/Follow Up Plan of Care/Instructions/FU: 2 weeks Danilo Lopez make slurry before taking. Protonix- take twice a day for 2 weeks then resume daily. Start pepcid as prescribed. Activity as Tolerated: Yes Discharge Diet: Regular Diet (Avoid acidic foods and beverages.) PEPITO GONZALES DO Dec 07, 2022 12:16
--- NOTE | 2022-12-07 12:18 | Progress Note-Post Operative ---
Post-Operative Progess Note Surgeon (s)/Career Specialist (s) Surgeon PEPITO GONZALES DO Career Specialist: na Pre-Operative Diagnosis atypical chest pain, dysphagia Post-Operative Diagnosis erosive esophagitis Procedure & Operative Findings Date of Procedure 12/07/22 Procedure Performed/Findings egd c biopsies Anesthesia Type per rock breaker Estimated Blood Loss Estimated blood loss (mL): none Specimens/Packing Specimens Removed antrum, ge, esophagus PEPITO GONZALES DO Dec 07, 2022 12:18
[2022-12-07 12:25] VITALS: BP 138/91
[2022-12-07 12:40] VITALS: BP 138/91
--- NOTE | 2022-12-07 20:11 | OPERATIVE REPORT ---
DATE OF SERVICE: 12/07/2022 PREOPERATIVE DIAGNOSES: Atypical chest pain, dysphagia. POSTOPERATIVE DIAGNOSIS: Erosive esophagitis. SURGEON: Pepito Carrasco DO ANESTHESIA: Per COMMODITIES TRADER. ESTIMATED BLOOD LOSS: None. PROCEDURES: EGD with biopsies. INDICATIONS: The patient is a 57-year-old female who has been having atypical chest pain, dysphagia symptoms. She understands risks and benefits of procedure and wished to proceed. Consent was signed in chart. DESCRIPTION OF PROCEDURE: The patient was taken to endoscopy suite, placed in left lateral recumbent position. Timeout was performed. Scope was inserted in the mouth, down the esophagus, stomach and into the duodenum without difficulty. No polyps, masses or ulcerations in the duodenum. Scope was slowly retracted back into the stomach where it was further insufflated. No polyps, masses or ulcerations. Biopsy of the antrum was obtained. Scope was retroflexed noting no other pathology. Scope was returned to its normal position, slowly withdrawn until distal esophagus. Biopsy of the GE junction was obtained. Some changes of reflux esophagitis. Scope was then continued slowly retracted back, noting erosive esophagitis with ulcerations. Biopsies were obtained. Scope was slowly retracted back until completely removed. The patient tolerated the procedure well without complications, taken to recovery room in stable condition. RECOMMENDATIONS: The patient will avoid acidic substances. The patient is on Protonix, we will change it to twice a day for 2 weeks and then resume normal daily use. [ ] encouraged her to make a [ ] before taking and then add Pepcid as well. She will follow up in the office in 2 weeks; if her symptoms worsen, she should be reevaluated at that time. Await biopsy results. Job ID: [id number] DocumentID: [id number] Dictated Date: 12/07/2022 12:21:03 Financial Quantitative Analyst Date: 12/07/2022 20:09:00 Dictated By: PEPITO CARRASCO DO
== END 2022-12-07 12:40 | disposition home or self-care (01) ==
LOC: ENDO 10:17
PROVIDERS: ATTEND Surgery
DX: K22.10 Ulcer of esophagus without bleeding (principal); R07.89 Other chest pain; Z79.899 Other long term (current) drug therapy